=== PATIENT | male | born 1960 | race Caucasian/White ===

== ENCOUNTER → 2017-02-22 | Outpatient (CLI) | payer BC ==
[~2017-02-22] MED LIST: AMITRIPTYLINE 225 MG PO; DEXILANT60 MG; LANSOPRAZOLE30 MG PO; LISINOPRIL TAB 10M; MELOXICAM7.5 MG
[2017-02-22 09:06] LABS: LYMPH # 1.5 K/mm3 (0.7-4.5); LYMPH % 20.7 % (10-50)
[2017-02-22 11:01] LABS: BUN 16 mg/dL (7-18)
[2017-02-22 11:21] LABS: GFR (ESTIMATED) 70 ML/MIN (>60)
== END ==
LOC: LAB 08:28
PROVIDERS: Internal Medicine Cardiovascular Disease
DX: I11.9 Hypertensive heart disease without heart failure (principal)

== ENCOUNTER → 2017-03-01 | Outpatient (CLI) | payer BC ==
[2017-03-01 13:53] LABS: BUN 20 mg/dL (7-18)
[2017-03-01 13:57] LABS: GFR (ESTIMATED) 70 ML/MIN (>60)
== END ==
LOC: LAB 11:27
PROVIDERS: Internal Medicine Cardiovascular Disease
DX: I10 Essential (primary) hypertension (principal); I11.9 Hypertensive heart disease without heart failure; R53.83 Other fatigue; R42 Dizziness and giddiness; K21.9 Gastro-esophageal reflux disease without esophagitis; I25.10 Atherosclerotic heart disease of native coronary artery without angina pectoris